=== PATIENT | male | born 1940 | race Caucasian/White ===

== ENCOUNTER 2021-07-08 18:54 | Inpatient (IN) | payer OTHER ==
[~2021-07-08] VITALS: Ht 162.6 cm; Wt 79.4 kg
--- NOTE | 2021-07-08 19:10 | NUR ---
PATIENT IS RECIEVED SAYING THAT HE HIT HIS LEFT ADAMSON THREE DAYS AGO AND NOW HAS AN ULCER WHERE HE HIT HIMSELF. LOCAL CARE IS PROVIDED TO AREA. PATIENT HAS A LYMPHOMA DIAGNOSIS, BUT IS CURRENTLY IN REMISSION.
[2021-07-08] MEDS ORDERED: METFORMIN HCL500 M3 (19:15)
--- NOTE | 2021-07-08 20:12 | NUR ---
SE RECIBE PACIENTE AMBULANDO CON FAMILIAR. REFIERE TRAUMA EN PIERNA IZQUIERDA HACE TOMY CARMONA. SE OBSERVA AREA CON ENROJECIMIENTO LEVE Y ABRASION. EVALUADO POR DRA GALDAMEZ. SE OBTIENEN MUESTRAS DE MAUREEN Y CULTIVO DE ULCERA.
--- NOTE | 2021-07-08 22:38 | NUR ---
PACIENTE REEVALUADO POR .GALDAMEZ QUIEN ADMITE EN OBVSERVACION. SE REALIZAN MUESTRAS DE LABORATORIOS Y SE CANALIZA PTE.SE ADMINISTRAN MEDICAMENTOS ESTELLE ORDEN.SE ENTREGA ENVASE PARA U/C YA/A. SE ORIENTA PACIENTE SOBRE SPUTUM CULTURE EN LA MANANA.
--- NOTE | 2021-07-09 | NUR ---
PACIENTE ALERTA Y ORIENTADO X3. EN KAN CON BARANDAS ELEVADAS. H/L PATENTE Y MARIEL DE EDEMA Y ERITEMA. SE MANTIENE BAJO OBSERVACION POR CAMBIO SIGNIFICATIVOS. PACIENTE CONSULTADO.
[2021-07-10] MEDS ORDERED: TAMSULOSIN HCL0.4 MG (11:22)
[2021-07-10] MEDS ORDERED: DICLOFENAC SOD100 GM (11:23)
[2021-07-10] MEDS ORDERED: ATENOLOL25 MG (11:23)
[2021-07-10] MEDS ORDERED: CLOBETASOL PROP15 GM (11:23)
[2021-07-10] MEDS ORDERED: PREGABALIN100 MG (11:23)
== END 2021-07-13 17:28 | disposition home or self-care (01) | DRG 603 ==
LOC: ER 18:54 → SEC-K 07-09 10:47 → MEDJ 07-09 14:11
PROVIDERS: ADMIT Specialist; ATTEND Specialist
PROC: B54CZZZ Ultrasonography of Left Lower Extremity Veins (ICD-10-PCS; principal; 2021-07-09)
PROC: BW24ZZZ Computerized Tomography (CT Scan) of Chest and Abdomen (ICD-10-PCS; 2021-07-09)
PROC: 8E0ZXY6 Isolation (ICD-10-PCS; 2021-07-09)
DX: L03.116 Cellulitis of left lower limb (principal); D69.6 Thrombocytopenia, unspecified; E11.69 Type 2 diabetes mellitus with other specified complication; I10 Essential (primary) hypertension; E66.8 Other obesity; Z85.72 Personal history of non-Hodgkin lymphomas; Z20.822 Contact with and (suspected) exposure to COVID-19; Z79.84 Long term (current) use of oral hypoglycemic drugs